=== PATIENT | male | born 1940 | race Caucasian/White ===

== ENCOUNTER 2020-06-30 15:29 | Emergency (ER) | payer MEDICARE, BC ==
[2020-06-30 15:54] VITALS: BP 156/90; PULSE 68
--- NOTE | 2020-06-30 16:26 | CR ---
EXAMINATION: Fingers Second Digit Lt F1 SEX: Male AGE: 80 years CLINICAL HISTORY: Left index finger injury (Laceration from saw). INTERPRETATION: 1. Nondisplaced, comminuted corner FRACTURE, base of the proximal phalanx left second (index) finger and extends into the adjacent second MCP joint. 2. 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 3. No sign of metacarpal or other second digit fracture/dislocation. 4. Soft tissue swelling (bandage). No other foreign bodies. No inflammatory periostitis.
[2020-06-30] MEDS ORDERED: Lidocaine 1% 30 ML SDV INJECT ONE (17:12)
[2020-06-30] MEDS ORDERED: Bacitracin Oint 1 GM U/D Packet TOP ONE (17:56)
--- NOTE | 2020-06-30 18:18 | EDM.PDOC ---
ED HPI GENERAL MEDICAL PROBLEM - General Chief Complaint: Laceration Stated Complaint: LACERATION ON LEFT INDEX FINGER Time Seen by Provider: 06/30/20 16:30 Source of Information: Reports: Patient, RN, RN Notes Reviewed History Limitations: Reports: No Limitations - History of Present Illness INITIAL COMMENTS - FREE TEXT/NARRATIVE: Patient presents to the ED via personal vehicle with complaints of lacerations to the left index finger. Per patient report, he was cutting trim board and was incidentally cut with a table saw blade. He states his bleeding has been well controlled; he is not currently taking any blood thinners. He states he is up to date on his tetanus toxoid. - Related Data Allergies Allergy/AdvReac Type Severity Reaction Status Date / Time codeine Allergy Cannot Verified 06/30/20 15:41 Remember Home Meds: Home Meds Multivitamin [Daily Multiple Vitamin] 1 tab PO DAILY 12/31/13 [History] atorvaSTATin [Lipitor] 10 mg PO .Q48 HRS. 12/31/13 [History] ED ROS GENERAL - Review of Systems Review Of Systems: Comprehensive ROS is negative, except as noted in HPI. ED EXAM, SKIN/RASH Exam: See Below Exam Limited By: No Limitations General Appearance: Alert, WD/WN, No Apparent Distress Peripheral Pulses: 2+: Radial (L), Radial (R) Extremities: Normal Capillary Refill Neurological: Alert, Oriented, CN II-XII Intact, Normal Cognition, Normal Gait Skin: Wound/Incision (To left index finger; Three lacerations to posterior aspect) Location, Skin: Upper Extremity, Left (To posterior aspect of left index finger) Associated features: Tenderness. No: Warmth, Inflammation, Crusting, Weeping, Rough ED SKIN PROCEDURES - Laceration/Wound Repair Left Posterior Digit - 2nd (Index) Appearance: Subcutaneous Distal NVT: Neuro & Vascular Intact, No Tendon Injury Anesthetic Type: Local Local Anesthesia - Lidocaine (Xylocaine): 1% Plain Local Anesthetic Volume: 5cc Skin Prep: Saline, Sterile Drape Exploration/Debridement/Repair: No Foreign Material Found, Wound Margins Revised, Multiple Flaps Aligned Closed with: Sutures Lac/Wound length In cm: 0.5 Suture Size: 4-0 # of Sutures: 2 Suture Type: Prolene, Interrupted, Simple Drain Placement: No Sterile Dressing Applied: Nurse Tetanus Status Addressed: Yes Complications: No Left Posterior Proximal Digit - 2nd (Index) Appearance: Subcutaneous Distal NVT: No Tendon Injury Anesthetic Type: Local Local Anesthesia - Lidocaine (Xylocaine): 1% Plain Local Anesthetic Volume: 5cc Skin Prep: Saline, Sterile Drape Exploration/Debridement/Repair: No Foreign Material Found, Wound Margins Revised Closed with: Sutures Lac/Wound length In cm: 2 Suture Size: 4-0 # of Sutures: 4 Suture Type: Prolene Drain Placement: No Sterile Dressing Applied: Nurse Tetanus Status Addressed: Yes Complications: No Left Posterior Distal Digit - 2nd (Index) Appearance: Subcutaneous Distal NVT: No Tendon Injury Anesthetic Type: Local Local Anesthesia - Lidocaine (Xylocaine): 1% Plain Local Anesthetic Volume: 5cc Skin Prep: Saline, Sterile Drape Exploration/Debridement/Repair: No Foreign Material Found, Wound Margins Revised, Multiple Flaps Aligned Closed with: Sutures Lac/Wound length In cm: 3 Suture Size: 4-0 # of Sutures: 6 Suture Type: Prolene Drain Placement: No Sterile Dressing Applied: Nurse Tetanus Status Addressed: Yes Complications: No Course - Vital Signs Last Recorded V/S: Last Vital Signs Temp 98.1 F 06/30/20 15:40 Pulse 68 06/30/20 15:40 Resp 16 06/30/20 15:40 BP 156/90 H 06/30/20 15:40 Pulse Ox 97 06/30/20 15:40 - Orders/Labs/Meds Meds: Medications Discontinued Medications Generic Name Dose Route Start Last Admin Trade Name Freq PRN Reason Stop Dose Admin Bacitracin 1 dose 06/30/20 17:56 06/30/20 18:02 Bacitracin Oint 1 Gm TOP 06/30/20 17:57 1 dose ONETIME ONE Administration Lidocaine HCl 30 ml 06/30/20 17:12 06/30/20 17:30 Xylocaine-Mpf 1% INJECT 06/30/20 17:13 30 ml ONETIME ONE Administration Departure - Departure Time of Disposition: 18:15 Disposition: Home, Self-Care 01 Clinical Impression: Laceration of left index finger w/o foreign body w/o damage to nail Qualifiers: Encounter type: initial encounter Qualified Code(s): S61.211A - Laceration without foreign body of left index finger without damage to nail, initial encounter - Discharge Information *PRESCRIPTION DRUG MONITORING PROGRAM REVIEWED*: Not Applicable *COPY OF PRESCRIPTION DRUG MONITORING REPORT IN PATIENT JULIA: Not Applicable Instructions: Laceration Care, Adult Referrals: India Forrest MD [Primary Care Provider] - Forms: ED Department Discharge Additional Instructions: Remove outside dressing to left index finger in 24 hours. Keep metal splint in place and apply compression wrap to hand to keep splint in place. Take OTC Tylenol every six hours, as needed for pain. Follow up with primary care provider in ten days for removal of stitches and to check wound. Sepsis Event Note (ED) - Evaluation Sepsis Screening Result: No Definite Risk
== END 2020-06-30 18:23 | disposition home or self-care (01) ==
LOC: DL.ED 15:29
DX: S61.211A Laceration without foreign body of left index finger without damage to nail, initial encounter (principal); Z88.5 Allergy status to narcotic agent; Z79.899 Other long term (current) drug therapy; W31.2XXA Contact with powered woodworking and forming machines, initial encounter
CPT/HCPCS: 12002; 73140; 99283; J2001